=== PATIENT | female | born 1965 | race Hispanic/Latino ===

== ENCOUNTER 2021-10-14 17:54 | Emergency (ER) | payer OTHER, SELFPAY ==
--- NOTE | ~2021-10-14 | XR_ITS ---
EXAMINATION: XR chest 2V DATE: 10/14/2021 18:51 INDICATION: Cough. Sore throat. Bilateral ear pressure. TECHNIQUE: Frontal and lateral views of the chest were obtained. COMPARISON: None. FINDINGS: Calcified right lung nodules and calcified right hilar lymph nodes are consistent with old granulomatous disease. No pleural effusion or pneumothorax. The heart size is normal. IMPRESSION: 1. No acute cardiopulmonary disease. Reviewed, dictated and finalized at location A. [employer]
[2021-10-14 18:06] VITALS: BP 164/82; PULSE 64; RESP 17; TEMP 36.5; O2SAT 100
--- NOTE | 2021-10-14 18:18 | ED.GENADULT ---
HPI - General Adult General Chief complaint: Upper Respiratory Infection Stated complaint: Cough/fever Time Seen by Provider: 10/14/21 18:18 History of Present Illness HPI narrative: Patient is a 56-year-old female who comes to the ED today complaining of some upper respiratory symptoms. Patient reports that for the last 4 days she has been having a sore throat, cough, sinus congestion and fatigue. No fevers. No other symptoms or concerns. She is primarily [place]ian-speaking. Her son is here and helps translate. Her son had an upper respiratory infection prior to the patient having her symptoms. The son is a home COVID-19 test and it was negative. The patient did receive the COVID-19 vaccine, first dose was in August and a second dose was in September. The patient is here with her who is also being seen for an upper respiratory infection. Review of Systems Constitutional: Constitutional: Reports as per HPI, Denies fever(s), Denies night sweats and Denies weakness ENT: Comments: See HPI Cardiovascular: Cardiovascular: Denies chest pain, Denies edema, Denies leg edema, Denies dyspnea and Denies orthopnea Respiratory: Respiratory: Reports cough and Denies dyspnea Gastrointestinal: Gastrointestinal: Denies abdominal pain, Denies constipation, Denies diarrhea, Denies nausea and Denies vomiting Musculoskeletal: Musculoskeletal: Denies abnormal gait, Denies back pain, Denies numbness and Denies tingling Neurologic: Denies Abnormal speech present, Denies abnormal gait, Denies numbness, Denies tingling and Denies weakness Psychiatric: Psychiatric: Denies homicidal ideation and Denies suicidal ideation Exam Const: General: cooperative, healthy appearing, comfortable, no acute distress, well developed, alert, awake and Physically active Orientation/consciousness: patient oriented x3 HENMT: Head: normal to inspection, normocephalic and atraumatic Ears: external ears normal General nose exam: Normal external nose present Other: Oropharynx clear. Eyes: Pupils: Equal, round and reactive pupils present EOM: EOMs intact bilaterally Neck: Neck: normal visual inspection Chest: Chest palpation & inspection: normal inspection of the chest and no tenderness Resp: Effort & Inspection: normal respiratory effort and able to speak in complete sentences Auscultation: clear to auscultation bilaterally Cardio: Rate: regular rate Rhythm: regular rhythm GI: Inspection: normal to inspection GI Palp: No abdominal tenderness : General: Yes no CVA tenderness Back/Spine/Pelvis: Back: no CVA tenderness Skin: General skin exam: normal color and no rashes or lesions noted Lesions: no lesions Neuro: General: patient oriented x3, no focal motor deficits and CN's II-XI intact bilaterally Cranial nerves: Yes Equal, round and reactive pupils present Speech: No Abnormal speech present Extrem: General: normal to inspection and full ROM Psych: Appearance: grossly normal and well kempt Mental Status: mental status grossly normal Speech and movement: Normal speech and movement present Affect: normal affect Thought process: Normal thought process present Course Course Emergency Course: 1804 I am seeing this patient in the triage box as the emergency room is currently full of admitted patients during this COVID-19 surge. Clinically she has a upper respiratory infection and she looks well. We will check a chest x-ray and swab for COVID-19. 1906 Chest x-ray clear. Will discharge with supportive care of her viral upper respiratory infection. Strict return to ED precautions with any new or worsening symptoms, especially shortness of breath. Vital Signs Vital signs: Vital Signs Temperature 36.5 C 10/14/21 18:06 Pulse Rate 64 10/14/21 18:06 Respiratory Rate 17 10/14/21 18:06 Blood Pressure 164/82 H 10/14/21 18:06 Pulse Oximetry 100 10/14/21 18:06 Temperature 36.5 C 10/14/21 18:06 Pulse Rate 64 10/14/21 18:06
[2021-10-15 13:42] LABS: SARS-CoV-2 RNA PCR Negative
== END 2021-10-14 19:46 | disposition home or self-care (01) ==
LOC: ANHED 19:36
PROVIDERS: Physician Assistant Medical; PCP Physician Assistant
DX: J06.9 Acute upper respiratory infection, unspecified (principal); Z20.822 Contact with and (suspected) exposure to COVID-19
CPT/HCPCS: 71046; 99283; C9803; U0003; U0005

== ENCOUNTER 2021-10-17 22:38 | Emergency (ER) | payer OTHER, SELFPAY ==
[2021-10-17 22:41] VITALS: BP 139/79; PULSE 61; RESP 18; TEMP 36.1; O2SAT 98
--- NOTE | 2021-10-17 22:59 | ED.URI ---
HPI - URI/Sore Throat General Chief Complaint: Upper Respiratory Infection Stated Complaint: COUGH/SORE THROAT Time Seen by Provider: 10/17/21 22:55 Source: patient Mode of arrival: ambulatory Limitations: no limitations History of Present Illness HPI Narrative: Patient is a 56-year-old female complaining of nasal congestion, cough, productive, white-yellowish sputum, fever, headache that started 4 days ago. Patient was seen here in the emergency room for the same complaint this past Friday, had a chest x-ray done that was clear, diagnosed with a URI and was given Tessalon Perles and ibuprofen but states that it is not working and she continues to cough. Patient denies any chest pain, shortness of breath, abdominal pain, nausea, vomiting or diarrhea. Review of Systems Review of Systems: See HPI All systems reviewed & are unremarkable except as noted in HPI and below PMFSH Comments Past medical history: None Family history: None Social history: Non-smoker no EtOH or drug use Exam Const: General: cooperative, healthy appearing, comfortable, no acute distress, well developed, alert and awake; No confusion Orientation/consciousness: oriented to person, oriented to place, oriented to time, patient oriented x3 and No confusion Limitations: no limitations HENMT: Head: normal to inspection, normocephalic and atraumatic Ears: hearing grossly normal bilaterally, TM normal on the right and TM normal on the left General nose exam: Normal external nose present, Normal nares present and No nasal discharge present Face and sinus: normal facial exam Mouth: Yes Normal oral and palatal mucosa present, Yes lip normal, Yes tongue normal and Yes oropharynx normal Throat: posterior oropharynx normal, tonsils normal and uvula midline Eyes: General: appearance normal, both eyes and all related structures Pupils: Equal, round and reactive pupils present EOM: EOMs intact bilaterally Neck: Neck: normal visual inspection, full ROM, no lymphadenopathy and no meningeal signs Chest: Chest palpation & inspection: normal inspection of the chest Resp: Effort & Inspection: normal respiratory effort, able to speak in complete sentences, no respiratory distress and not tachypneic Auscultation: clear to auscultation bilaterally, no crackles, no rales, no rhonchi and no wheezes Cardio: Rate: regular rate Rhythm: regular rhythm GI: Inspection: normal to inspection GI Palp: No abdominal tenderness, Yes Soft to palpation, No Tenderness to palpation present (GI), No Guarding due to palpation present (GI), No Rigid due to palpation and No Rebound tenderness present Auscultation: normal bowel sounds : General: Yes no CVA tenderness Back/Spine/Pelvis: Back: no CVA tenderness Skin: General skin exam: normal color, no rashes or lesions noted, elasticity normal and turgor normal Neuro: General: oriented to person, oriented to place, oriented to time, patient oriented x3, tone normal, moves all extremities, Normal light touch and pain sensation, no meningeal signs, no focal motor deficits, CN's II-XI intact bilaterally and No confusion Cranial nerves: Yes Equal, round and reactive pupils present Speech: No Abnormal speech present Sensory Exam: No Sensory deficit (Neuro) Extrem: General: normal to inspection, full ROM and capillary refill normal Psych: Appearance: grossly normal and well kempt Mental Status: mental status grossly normal Speech and movement: Normal speech and movement present Affect: normal affect Attitude: cooperative Thought process: Normal thought process present Thought content: Yes Normal thought content present Insight: Good insight present (Psych) Judgement: Good judgement present (Psych) Course Vital Signs Vital signs: Vital Signs Temperature 36.1 C L 10/17/21 22:41 Pulse Rate 61 10/17/21 22:41 Respiratory Rate 18 10/17/21 22:41 Blood Pressure 139/79 10/17/21 22:41 Pulse Oximetry 98 10/17/21 22:41 Temperature
== END 2021-10-17 23:47 | disposition home or self-care (01) ==
PROVIDERS: Emergency Provider Emergency Medicine; PCP Physician Assistant
DX: J06.9 Acute upper respiratory infection, unspecified (principal); B34.9 Viral infection, unspecified
CPT/HCPCS: 99281

== ENCOUNTER 2022-01-21 17:35 | Emergency (ER) | payer OTHER, SELFPAY ==
--- NOTE | ~2022-01-21 | CT_ITS ---
EXAMINATION: CT brain & sinus wo con DATE: 01/21/2022 19:04 INDICATION: TECHNIQUE: Computed tomography (CT) of the head was performed without intravenous contrast. CT of the paranasal sinuses was performed without intravenous contrast. The mA was adjusted according to patie nt size. Iterative reconstruction technique was employed. The dose-length product was 681.00 mGy-cm. COMPARISON: None FINDINGS: No acute intracranial hemorrhage or extra-axial fluid collection. No hydrocephalus, mass, or herniation. No acute ischemic infarct. Unremarkable dural venous sinus attenuation. No acute osseous abnormality. CT sinuses: The aerated spaces are clear. No septal deviation. The ostiomeatal units are patent. IMPRESSION: No acute intracranial process. Normal sinus CT findings. Reviewed, dictated and finalized at location K.
[2022-01-21 17:49] VITALS: BP 150/78; PULSE 38; RESP 16; TEMP 36.6; O2SAT 100
--- NOTE | 2022-01-21 18:24 | ED.HA ---
HPI - Headache General Chief Complaint: Headache Stated Complaint: blurred vision/morris Time Seen by Provider: 01/21/22 18:11 Source: patient and family Mode of arrival: ambulatory Limitations: no limitations History of Present Illness HPI Narrative: Patient is 56 years old female does not speak Sammarinese, came to the emergency room with her daughter who speaks Sammarinese complaining of right frontal pain, right eye pain and right maxillary sinus pain started 4 days ago. Not improving and Tylenol. Patient also complaining of floaters in the right eye. Patient denies any nausea, vomiting or similar symptom. Patient uses reading glasses. Does not use contact lenses. Patient denies any redness or discharge of the right eye. History of hypertension. Patient does not smoke or drink or uses drugs. Related Data Allergies Allergy/AdvReac Type Severity Reaction Status Date / Time No Known Allergies Allergy Verified 01/21/22 18:24 Review of Systems Review of Systems: CONSTITUTIONAL: Denies fever, chills, or sweats. EYES: Denies visual changes, redness, or discharge. ENT: Denies rhinorrhea, congestion, sore throat, or otalgia. CARDIOVASCULAR: Denies chest pain, palpitations, or edema. RESPIRATORY: Denies cough or dyspnea. GASTROINTESTINAL: Denies abdominal pain, nausea, vomiting, or diarrhea. GENITOURINARY: Denies dysuria or hematuria. SKIN: Denies rash or itching. MUSCULOSKELETAL: Denies back pain, joint pain, or myalgia. NEUROLOGIC: Denies headache, numbness, or weakness. PSYCHIATRIC: Denies anxiety or depression. Exam Narrative: General appearance: Well-developed, well-nourished Skin: Normal color Head: Normocephalic, nontraumatic, moderate tenderness right frontal area, right maxillary which is slightly puffy compared to the left side. Eyes: Clear conjunctiva, pain does not increase with the eye movement. ENT: Oropharynx normal, ears normal, nose normal Neck: Supple, nontender Chest and respiratory: Airway patent, no respiratory distress, no accessory muscle use Heart: Bradycardia Abdomen: Soft, nontender, no organomegaly, quiet bowel sounds Vascular: Normal peripheral pulses, normal capillary refill. 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 And her daughter will drive her to [facility] emergency room immediately. Date: 01/21/22 Time: 20:43 Consultations Consultation #1: DR LOONEY, personal development coach at [facility] who accepted patient transfer to the ED for evaluation Date: 01/21/22 Time: 20:37 Consultation #2: DR AVELAR Date: 01/21/22 Time: 20:38 Vital Signs Vital signs: Vital Signs Temperature 36.6 C 01/21/22 17:49 Pulse Rate 38 L 01/21/22 17:49 Respiratory Rate 16 01/21/22 17:49 Blood Pressure 150/78 H 01/21/22 17:49 Pulse Oximetry 100 01/21/22 17:49 Temperature 36.6 C 01/21/22 17:49 Pulse Rate 45 L 01/21/22 19:18 Respiratory Rate 14 01/21/22 19:18 Blood Pressure 135/60 01/21/22 19:18 Pulse Oximetry 100 01/21/22 19:18 MDM - Headache Lab Data Result diagrams: 01/21/22 18:37 01/21/22 18:37 Labs: Lab Results 01/21/22 01/21/22 01/21/22 Range/Units 18:37 18:37 18:37 WBC 6.4 (4.5-10.0) K/mm3 RBC 5.09 (4.2-5.4) M/mm3 Hgb 14.3 (12.0-15.0) g/dL Hct 45.1 (37.0-47.0) % MCV 88.6 (80-100) fl MCH 28.1 (26-34) pg MCHC 31.7 L
--- NOTE | 2022-01-21 18:26 | ECG_ITS ---
Measurements Intervals [place] Rate: 37 P: 7 RI: 176 QRS: -24 QRSD: 106 T: -7 QT: 472 QTc: 371 Interpretive Statements MARKED SINUS BRADYCARDIA BORDERLINE LEFT AXIS DEVIATION [QRS AXIS < -20] VOLTAGE CRITERIA FOR LVH [MEETS CRITERIA IN ONE OF: R(aVL), S(V1), R(V5), R(V5/V6)+S(V1)] NONSPECIFIC T-WAVE ABNORMALITY ABNORMAL ECG NO PREVIOUS ECG AVAILABLE FOR COMPARISON Electronically Signed On 01-22-2022 18:01:05 CDT by Everardo Gomez M.D.
[2022-01-21] MEDS: ONDANSETRON INJ 4 MG/2 ML VIAL IV PUSH (18:46)
[2022-01-21] MEDS: MORPHINE SULFATE (*CRX) 4 MG/ML INJ IV PUSH (18:46)
[2022-01-21] MEDS: SODIUM CHLORIDE 0.9% IV 1,000 ML 999 ML IV CONT (18:46)
--- NOTE | 2022-01-21 18:48 | PC.NURSE ---
pt to CT
[2022-01-21 18:49] LABS: Basophils Absolute Auto 0.1 K/mm3 (0.0-0.1); Basophils Percent Auto 0.8 % (0.2-1.2); Eosinophils Absolute Auto 0.3 K/mm3 (0-0.3); Eosinophils Percent Auto 4.9 % (0-4.4); Hematocrit 45.1 % (37.0-47.0); Hemoglobin 14.3 g/dL (12.0-15.0); Immature Granulocyte Absolute 0.02 K/mm3 (0.00-0.031); Immature Granulocyte Percent A 0.3 % (0-0.5); Lymphocytes Absolute Auto 2.33 K/mm3 (0.9-3.2); Lymphocytes Percent Auto 36.6 % (18.3-44.2); Mean Corpuscular HGB Conc 31.7 g/dl (32-36); Mean Corpuscular Hemoglobin 28.1 pg (26-34); Mean Corpuscular Volume 88.6 fl (80-100); Mean Platelet Volume 12.2 fl (7.4-10.4); Monocytes Absolute Auto 0.4 K/mm3 (0.1-0.6); Monocytes Percent Auto 6.4 % (2.6-8.5); Neutrophils Absolute Auto 3.3 K/mm3 (1.3-6.7); Platelet Count Result 235 k/mm3 (150-375); Red Blood Count 5.09 M/mm3 (4.2-5.4); Red Cell Distribution Width 13.7 % (11.5-14.5); White Blood Count 6.4 K/mm3 (4.5-10.0)
[2022-01-21 19:06] LABS: Alanine Aminotransferase 16 U/L (4-35); Albumin Level 4.5 g/dL (3.5-5.1); Alkaline Phosphatase 83 U/L (38-126); Anion Gap 10 mmol/L (8-16); Aspartate Amino Transferase 27 U/L (14-36); Bilirubin,Total 1.2 mg/dL (0.2-1.3); Blood Urea Nitrogen 21 mg/dL (7-17); Calcium 8.9 mg/dL (8.4-10.2); Carbon Dioxide 23 mmol/L (22-30); Chloride 108 mmol/L (98-107); Estimated Glomerular Filt Rate > 60; Glucose 88 mg/dL (65-110); Potassium 3.9 mmol/L (3.4-5.0); Sodium 141 mmol/L (137-145)
[2022-01-21 19:18] VITALS: BP 135/60; PULSE 45; RESP 14; O2SAT 100
--- NOTE | 2022-01-21 19:28 | PC.NURSE ---
Report received from Bull MCARTHUR and care of pt assumed at this time.
[2022-01-21 19:30] LABS: Erythrocyte Sedimentation Rate 11 mm/hr (0-20)
--- NOTE | 2022-01-21 20:49 | PC.NURSE ---
Risks and benefits of transport explained to pt and family. Pt and family wish to decline EMS transfer and transfer via private vehicle.
== END 2022-01-21 21:00 | disposition short-term general hospital (02) ==
PROVIDERS: Emergency Provider Emergency Medicine; PCP Physician Assistant
DX: R51.9 Headache, unspecified (principal); H43.391 Other vitreous opacities, right eye; R00.1 Bradycardia, unspecified; R94.31 Abnormal electrocardiogram [ECG] [EKG]
CPT/HCPCS: 36415; 70450; 70486; 80053; 84443; 85025; 85652; 93005; 96361; 96374; 96375; 99285; J2270; J2405; J7030